=== PATIENT | male | born 1965 | race Two or more races ===

== ENCOUNTER → 2025-01-08 | Outpatient (CLI) | payer MEDICAID, SELFPAY ==
--- NOTE | 2025-01-08 13:55 | XR_ITS ---
EXAMINATION: Ankle, left 3 views . Technique: Ankle AP, oblique, lateral 3 views Date and time of exam: January 08, 2025 1402 hours INDICATIONS: History left ankle fracture 3 months ago. FINDINGS: Significant partial healing fractures distal tibia and fibula with satisfactory alignment Orthopedic hardware satisfactory position Orthopedic screws talus No ankle dislocation IMPRESSION: Significant partial healing ankle fractures with satisfactory alignment
== END | disposition home or self-care (01) ==
LOC: CDIM 13:41
PROVIDERS: Referring Provider Orthopaedic Surgery; Visit Provider Orthopaedic Surgery
DX: S82.832A Other fracture of upper and lower end of left fibula, initial encounter for closed fracture (principal); S82.392A Other fracture of lower end of left tibia, initial encounter for closed fracture; X58.XXXA Exposure to other specified factors, initial encounter
CPT/HCPCS: 73610